=== PATIENT | male | born 1945 | race Caucasian/White ===

== ENCOUNTER 2024-07-27 01:49 | Emergency (ER) | payer MEDICAID, MEDICARE ==
[~2024-07-27] VITALS: Ht 175.3 cm; Wt 82.0 kg
[2024-07-27 01:59] VITALS: O2SAT 99
[2024-07-27] MEDS ORDERED: METHYLPREDNISOLONE SOD SUCC 125MG/2ML (ACT-O-VIAL) IV STA (03:07)
[2024-07-27 03:15] VITALS: PULSE 96; RESP 18
[2024-07-27] MEDS: ALBUTEROL (0.083%) 2.5MG/3ML NEB HHN STA (03:15)
[2024-07-27] MEDS: IPRATROPIUM BROMIDE (0.02%) 0.5MG/2.5ML NEB HHN STA (03:15)
[2024-07-27 03:34] LABS: BASOPHILS % 1.5 % (0.0-2.0); DIFFERENTIAL COMMENT 0; EOSINOPHILS % 11.4 % (0.0-5.0); HEMATOCRIT. 44.3 % (42.0-52.0); LYMPHOCYTES % 25.6 % (20.0-50.0); MEAN CORPUSCULAR HEMOGLOBIN 23.8 pg (28.0-32.0); MEAN CORPUSCULAR HGB CONC 31.6 g/dL (31.0-37.0); MEAN CORPUSCULAR VOLUME 75.4 fL (80.0-94.0); MEAN PLATELET VOLUME 8.2 fl (7.4-10.4); MONOCYTES % 13.4 % (2.0-8.0); NEUTROPHILS % 48.1 % (40.0-76.0); PLATELET 298 x1000/uL (130-400); RED BLOOD CELL COUNT 5.87 mill/uL (4.7-6.1); RED CELL DISTRIBUTION WIDTH 13.2 % (11.6-14.6)
[2024-07-27 03:48] LABS: CARBON DIOXIDE 26 mEq/L (21-32); CHLORIDE 102 mEq/L (98-107); POTASSIUM 4.2 mEq/L (3.5-5.1); SODIUM 135 mEq/L (136-145)
[2024-07-27 03:49] LABS: CALCIUM 9.7 mg/dL (8.7-10.4)
[2024-07-27 03:53] LABS: TROPONIN I HIGH SENSITIVITY 38 ng/L (3.0-53)
[2024-07-27 03:54] LABS: CREATININE 1.1 mg/dL (0.6-1.3); GLUCOSE 150 mg/dL (70-105); UREA NITROGEN BLOOD 14 mg/dL (9-23)
[2024-07-27] MEDS: MAGNESIUM 2 G PREMIX 50 ML IV ONE (04:30)
[2024-07-27] MEDS: METHYLPREDNISOLONE SOD SUCC 125MG/2ML (ACT-O-VIAL) IV NR (04:30)
[2024-07-27 08:04] VITALS: BP 128/78; TEMP 37.11408; O2SAT 100
[2024-07-27] MEDS ORDERED: DEXTROSE 50% WATER 50ML SYRINGE IV PRN (08:45)
[2024-07-27] MEDS ORDERED: IPRATROPIUM/ALBUTEROL 0.5-3(2.5)MG/3ML NEB HHN PRN (08:45)
[2024-07-27] MEDS ORDERED: DOCUSATE SODIUM 100MG CAPSULE PO PRN (08:45)
[2024-07-27] MEDS ORDERED: ACETAMINOPHEN 325MG TABLET PO PRN ×2 (08:45)
[2024-07-27] MEDS ORDERED: MAGNESIUM/ALUMINUM HYDROXIDE/SIMETHICONE 30ML UDC PO PRN (08:45)
[2024-07-27] MEDS: SODIUM CHLORIDE 0.9% 500 ML IV ONE (08:45)
[2024-07-27] MEDS ORDERED: ONDANSETRON HCL 4MG/2ML INJ IV PRN (08:45)
[2024-07-27] MEDS ORDERED: CLONIDINE 0.1MG TABLET PO PRN (08:45)
[2024-07-27] MEDS ORDERED: GUAIFENESIN 200MG/10ML SUGAR FREE UDC PO PRN (08:45)
[2024-07-27] MEDS ORDERED: HYDROCODONE/ACETAMINOPHEN 5/325MG TABLET PO PRN (08:45)
[2024-07-27] MEDS: ASPIRIN 81MG EC TABLET PO SCH (09:00)
[2024-07-27] MEDS: TAMSULOSIN HCL 0.4MG SR CAPSULE PO SCH (09:00)
[2024-07-27] MEDS: AMLODIPINE 5MG TABLET PO SCH (09:00)
[2024-07-27] MEDS: BLOOD SUGAR DIAGNOSTIC STRIP TEST SCH (09:45)
[2024-07-27] MEDS: INSULIN GLARGINE 100 UNITS/ML SUBCUT SCH (10:00)
[2024-07-27] MEDS: ENOXAPARIN 40MG/0.4ML SYR SUBCUT SCH (10:17)
[2024-07-27 11:05] VITALS: PULSE 117; RESP 24
[2024-07-27] MEDS: BUDESONIDE 0.5MG/2ML NEB HHN SCH (11:05)
[2024-07-27] MEDS: IPRATROPIUM/ALBUTEROL 0.5-3(2.5)MG/3ML NEB HHN SCH (11:05)
[2024-07-27] MEDS ORDERED: INSULIN LISPRO 100 UNITS/ML SUBCUT SCH ×2 (12:50→13:20)
[2024-07-27] MEDS ORDERED: METHYLPREDNISOLONE SOD SUCC 40MG/ML (ACT-O-VIAL) IV SCH (14:00)
[2024-07-27] MEDS ORDERED: METFORMIN HCL 500MG TABLET PO SCH (17:00)
== END 2024-07-27 11:52 | disposition left against medical advice (07) ==
LOC: ER 01:49 → CANBEDREQ 11:35 → ER 11:52
DX: J96.91 Respiratory failure, unspecified with hypoxia (principal); J45.901 Unspecified asthma with (acute) exacerbation; F19.90 Other psychoactive substance use, unspecified, uncomplicated; E11.9 Type 2 diabetes mellitus without complications; I11.0 Hypertensive heart disease with heart failure; I50.9 Heart failure, unspecified; N40.0 Benign prostatic hyperplasia without lower urinary tract symptoms; Z79.899 Other long term (current) drug therapy; Z88.0 Allergy status to penicillin; Z87.19 Personal history of other diseases of the digestive system; Z20.822 Contact with and (suspected) exposure to COVID-19
CPT/HCPCS: 80048; 82962; 83036; 83880; 83605; 83690; 85025; 84484; 36415; 71045; 94640; 96361; 96372; 96374; 99291; 87426; J1650; J1815; J3475; J2919; Z7610 ×4; J7626

== ENCOUNTER 2024-12-21 23:48 | Inpatient (IN) | payer MEDICARE, MEDICAID ==
[~2024-12-21] VITALS: Ht 177.8 cm; Wt 79.4 kg
[2024-12-21 23:55] VITALS: RESP 34
[2024-12-22] VITALS (69 sets, daily range): BP systolic 59–150; BP diastolic 39–80; PULSE 57–122; RESP 19–24; TEMP 36.6–36.7; O2SAT 95–100
[2024-12-22] MEDS: METHYLPREDNISOLONE SOD SUCC 125MG/2ML (ACT-O-VIAL) IV ONE (00:09)
[2024-12-22] MEDS: IPRATROPIUM BROMIDE (0.02%) 0.5MG/2.5ML NEB HHN STA (00:09)
[2024-12-22] MEDS: ALBUTEROL (0.083%) 2.5MG/3ML NEB HHN STA (00:10)
[2024-12-22 00:28] LABS: BASOPHILS % 0.4 % (0.0-2.0); DIFFERENTIAL COMMENT 0; EOSINOPHILS % 2.9 % (0.0-5.0); HEMOGLOBIN. 13.8 g/dL (14.0-18.0); LYMPHOCYTES % 21.3 % (20.0-50.0); MEAN CORPUSCULAR HGB CONC 31.3 g/dL (31.0-37.0); MEAN CORPUSCULAR VOLUME 76.7 fL (80.0-94.0); MONOCYTES % 9.1 % (2.0-8.0); NEUTROPHILS % 66.3 % (40.0-76.0); PLATELET 513 x1000/uL (130-400); RED BLOOD CELL COUNT 5.74 mill/uL (4.7-6.1); WHITE BLOOD COUNT 15.8 x1000/uL (4.5-11.0)
[2024-12-22 00:33] LABS: *AMPHETAMINES SCREEN URINE NEGATIVE (NEGATIVE); *BARBITURATES SCREEN URINE NEGATIVE (NEGATIVE); *BENZODIAZEPINES SCREEN URINE NEGATIVE (NEGATIVE); *COCAINE SCREEN URINE NEGATIVE (NEGATIVE); METHADONE URINE SCREEN NEGATIVE (NEGATIVE); OPIATES URINE SCREEN NEGATIVE (NEGATIVE)
[2024-12-22 00:34] LABS: CANNABINOID URINE SCREEN NEGATIVE (NEGATIVE); ECSTASY MDMA SCREEN URINE CONF.TEST INDICATED (NEGATIVE); PHENCYCLIDINE URINE SCREEN NEGATIVE (NEGATIVE)
[2024-12-22 00:37] LABS: PARTIAL THROMBOPLASTIN TIME 25.1 sec (23.4-31.0); PROTHROMBIN TIME 10.3 sec (9.6-11.0)
[2024-12-22 00:44] LABS: CARBON DIOXIDE 24 mEq/L (21-32); CHLORIDE 99 mEq/L (98-107); POTASSIUM 4.7 mEq/L (3.5-5.1); SODIUM 135 mEq/L (136-145)
[2024-12-22 00:45] LABS: CALCIUM 9.1 mg/dL (8.7-10.4)
[2024-12-22 00:49] LABS: CREATININE 1.2 mg/dL (0.6-1.3)
[2024-12-22 00:50] LABS: UREA NITROGEN BLOOD 23 mg/dL (9-23)
[2024-12-22] MEDS: LORAZEPAM 2MG/ML INJ IV ONE (00:58)
[2024-12-22] MEDS: PIPERACILLIN/TAZO 3.375G/50ML 50 ML IV ONE (01:11)
[2024-12-22] MEDS: VANCOMYCIN 1.25GM/250ML 250 ML IV SCH (01:41)
[2024-12-22] MEDS: SODIUM CHLORIDE 0.9% (SEPSIS BOLUS) IV NR (01:41)
[2024-12-22 01:56] LABS: LACTIC ACID 3.8 mmol/L (0.4-2.0)
[2024-12-22 01:57] LABS: GLUCOSE 410 mg/dL (70-105)
[2024-12-22 01:58] LABS: ETHANOL BLOOD < 10 mg/dL (<10); TROPONIN I HIGH SENSITIVITY 58 ng/L (3.0-53)
[2024-12-22 02:08] LABS: INFLUENZA TYPE A Detected (Pres. Neg.); INFLUENZA TYPE B Presumptive Negative (Pres. Neg.)
[2024-12-22] MEDS ORDERED: ACETAMINOPHEN 325MG TABLET PO PRN ×2 (02:30)
[2024-12-22] MEDS ORDERED: DEXTROSE 50% WATER 50ML SYRINGE IV PRN (02:30)
[2024-12-22] MEDS ORDERED: ONDANSETRON HCL 4MG/2ML INJ IV PRN (02:30)
[2024-12-22 02:42] LABS: BG BASE EXCESS -6.4 mmol/L (-2.0-3.0); BG CARBOXYHEMOGLOBIN 0.8 % (0.5-1.5); BG DEOXYHEMOGLOBIN 4.6 % (0.0-5.0); BG FRACTION INSPIRED OXYGEN 60; BG HCO3 ACT 19.4 mmol/L (21.0-28.0); BG OXYGEN SATURATION 95.4 % (94.0-98.0); BG OXYHEMOGLOBIN 94.6 % (94.0-98.0); BG PCO2 39.4 mmHg (35.0-48.0); BG PO2 81.5 mmHg (83.0-108.0); BG SAMPLE SITE RIGHT BRACHIAL; BG TOTAL HEMOGLOBIN 12.7 g/dL (13.5-17.5); BG VENT MODE HIGH FLOW
[2024-12-22] MEDS: OSELTAMIVIR 75MG CAPSULE PO ONE (02:42)
[2024-12-22] MEDS: OSELTAMIVIR 75MG CAPSULE PO NR (02:47)
[2024-12-22] MEDS: ASPIRIN 325MG EC TABLET PO NR (02:47)
[2024-12-22] MEDS ORDERED: METF-415 (02:51)
[2024-12-22] MEDS ORDERED: FLUT1DIS3 PO (02:51)
[2024-12-22] MEDS ORDERED: DORZ10DR9 EACHEYE (02:51)
[2024-12-22] MEDS ORDERED: LISI40TA13 (02:51)
[2024-12-22] MEDS ORDERED: MIRT-89 PO (02:51)
[2024-12-22] MEDS ORDERED: LATA2.5D14 EACHEYE (02:51)
[2024-12-22] MEDS ORDERED: MONT-39 PO (02:51)
[2024-12-22] MEDS ORDERED: BRIM.2 EACHEYE (02:51)
[2024-12-22] MEDS ORDERED: SIMV-43 (02:51)
[2024-12-22 02:55] LABS: POTASSIUM 4.6 mEq/L (3.5-5.1)
[2024-12-22 03:01] LABS: CREATININE 1.2 mg/dL (0.6-1.3)
[2024-12-22] MEDS: IPRATROPIUM BROMIDE (0.02%) 0.5MG/2.5ML NEB HHN SCH (03:37)
[2024-12-22] MEDS ORDERED: FENTANYL 2500MCG/250ML PMX 250 ML IV PRN (05:00)
[2024-12-22] MEDS ORDERED: MIDAZOLAM 100MG/100ML PMX 100 ML IV PRN (05:00)
[2024-12-22] MEDS: MIDAZOLAM 100MG/100ML PMX 100 ML IV PRN (05:09)
[2024-12-22] MEDS: FENTANYL 2500MCG/250ML PMX 250 ML IV PRN (05:10)
[2024-12-22] MEDS ORDERED: PHENYLEPHRINE 50MG/250ML PMX 250 ML IV PRN (05:15)
[2024-12-22] MEDS: SODIUM CHLORIDE 0.9% 100 ML IV ONE (05:39)
[2024-12-22 05:57] LABS: BG CARBOXYHEMOGLOBIN 0.3 % (0.5-1.5); BG DEOXYHEMOGLOBIN 0.1 % (0.0-5.0); BG FRACTION INSPIRED OXYGEN 100; BG HCO3 ACT 18.9 mmol/L (21.0-28.0); BG METHEMOGLOBIN 0.1 % (0.5-1.5); BG OXYGEN SATURATION 99.9 % (94.0-98.0); BG OXYHEMOGLOBIN 99.5 % (94.0-98.0); BG PH 7.252 (7.350-7.450); BG SAMPLE SITE RIGHT BRACHIAL; BG TOTAL HEMOGLOBIN 13.6 g/dL (13.5-17.5); BG TOTAL RESPIRATORY RATE 20 b/min; BG VENT MODE VENT - AC
[2024-12-22] MEDS: SODIUM CHLORIDE 0.9% 1,000 ML IV SCH ×2 (06:00)
[2024-12-22] MEDS: PIPERACILLIN/TAZO 3.375G/50ML 50 ML IV SCH (06:08)
[2024-12-22] MEDS: METHYLPREDNISOLONE SOD SUCC 40MG/ML (ACT-O-VIAL) IV SCH (06:08)
[2024-12-22] MEDS: BLOOD SUGAR DIAGNOSTIC STRIP TEST SCH (07:37)
[2024-12-22] MEDS: PHENYLEPHRINE 50MG/250ML PMX 250 ML IV PRN (08:17)
[2024-12-22] MEDS: ENOXAPARIN 40MG/0.4ML SYR SUBCUT SCH (08:40)
[2024-12-22] MEDS: OSELTAMIVIR 75MG CAPSULE PO SCH (08:40)
[2024-12-22] MEDS: INSULIN LISPRO 100 UNITS/ML SUBCUT SCH (08:41)
[2024-12-22] MEDS: PANTOPRAZOLE SODIUM 40 MG/VIAL IV SCH (08:41)
[2024-12-22] MEDS: DORZOLAM/TIMOLOL 2%/0.5% OPHTH DROPS 10ML EACHEYE SCH (11:33)
[2024-12-22] MEDS: BRIMONIDINE 0.2% OPHTH DROPS 5ML EACHEYE SCH (11:34)
[2024-12-22] MEDS ORDERED: VANCOMYCIN 750MG/250ML IV SCH (15:00)
[2024-12-22] MEDS: VANCOMYCIN 750MG/150ML (BAXTER) IV SCH (15:27)
[2024-12-22 19:18] LABS: CREATINE KINASE MB FRACTION 3.5 ng/mL (0.5-3.6)
[2024-12-22] MEDS: ATORVASTATIN CALCIUM 20MG TABLET PO SCH (20:36)
[2024-12-22] MEDS: ASPIRIN 81MG TABLET PO SCH (20:37)
[2024-12-22] MEDS: ENOXAPARIN 80MG/0.8ML SYR SUBCUT SCH (20:57)
[2024-12-23] VITALS (92 sets, daily range): BP systolic 85–176; BP diastolic 48–141; PULSE 45–120; RESP 4–29; TEMP 36.3–36.8; O2SAT 96–100
[2024-12-23] MEDS: PROPOFOL 10MG/ML 100ML 100 ML IV PRN (00:03)
[2024-12-23 01:27] LABS: CREATINE KINASE MB FRACTION 2.7 ng/mL (0.5-3.6)
[2024-12-23 06:13] LABS: CHLORIDE 107 mEq/L (98-107); SODIUM 138 mEq/L (136-145)
[2024-12-23 06:14] LABS: BASOPHILS % 0.1 % (0.0-2.0); CALCIUM 8.2 mg/dL (8.7-10.4); CARBON DIOXIDE 18 mEq/L (21-32); DIFFERENTIAL COMMENT 0; HEMATOCRIT. 35.8 % (42.0-52.0); HEMOGLOBIN. 11.5 g/dL (14.0-18.0); LYMPHOCYTES % 8.1 % (20.0-50.0); MEAN CORPUSCULAR HEMOGLOBIN 23.5 pg (28.0-32.0); MEAN CORPUSCULAR VOLUME 73.4 fL (80.0-94.0); MEAN PLATELET VOLUME 8.5 fl (7.4-10.4); MONOCYTES % 6.4 % (2.0-8.0); NEUTROPHILS % 85.4 % (40.0-76.0); PLATELET 338 x1000/uL (130-400); RED BLOOD CELL COUNT 4.88 mill/uL (4.7-6.1); RED CELL DISTRIBUTION WIDTH 15.9 % (11.6-14.6); WHITE BLOOD COUNT 19.9 x1000/uL (4.5-11.0)
[2024-12-23 06:17] LABS: CREATINE KINASE MB FRACTION 2.5 ng/mL (0.5-3.6)
[2024-12-23 06:19] LABS: ALANINE AMINOTRANSFERASE 237 IU/L (10-49); CREATININE 0.9 mg/dL (0.6-1.3); GLUCOSE 199 mg/dL (70-105); TRIGLYCERIDE 109 mg/dL (0-150); UREA NITROGEN BLOOD 28 mg/dL (9-23)
[2024-12-23 06:21] LABS: ALBUMIN 3.1 g/dL (3.2-4.8); ASPARTATE AMINOTRANSFERASE 203 IU/L (<34); BILIRUBIN TOTAL 0.6 mg/dL (0.1-1.0); CREATINE KINASE 60 IU/L (46-171); PROTEIN TOTAL 5.4 g/dL (6.0-8.3)
[2024-12-23 06:38] LABS: TROPONIN I HIGH SENSITIVITY 334 ng/L (3.0-53)
[2024-12-23 08:51] LABS: BG BASE EXCESS -5.2 mmol/L (-2.0-3.0); BG CARBOXYHEMOGLOBIN 0.1 % (0.5-1.5); BG FRACTION INSPIRED OXYGEN 50; BG HCO3 ACT 18.5 mmol/L (21.0-28.0); BG METHEMOGLOBIN 0.3 % (0.5-1.5); BG OXYHEMOGLOBIN 98.6 % (94.0-98.0); BG PCO2 30.2 mmHg (35.0-48.0); BG PH 7.405 (7.350-7.450); BG PO2 140.2 mmHg (83.0-108.0); BG SAMPLE SITE LEFT RADIAL; BG VENT MODE VENT - AC
[2024-12-23 09:41] LABS: TRIGLYCERIDE 104 mg/dL (0-150)
[2024-12-23 09:42] LABS: LDL CHOLESTEROL 58 mg/dL (5-100)
[2024-12-23 09:43] LABS: CHOLESTEROL 145 mg/dL (<200); HDL CHOLESTEROL 55 mg/dL (>55); THYROID STIMULATING HORMONE < 0.10 uIU/mL (0.55-4.78)
[2024-12-23 09:46] LABS: T4 FREE 1.91 ng/dL (0.89-1.76)
[2024-12-23] MEDS ORDERED: AZITHROMYCIN 500MG/250ML 250 ML IV SCH (10:00)
[2024-12-23] MEDS: LATANOPROST 0.005% OPHTH DROPS 2.5ML EACHEYE SCH (11:30)
[2024-12-23 15:18] LABS: BG BASE EXCESS -4.9 mmol/L (-2.0-3.0); BG CARBOXYHEMOGLOBIN 0.1 % (0.5-1.5); BG DEOXYHEMOGLOBIN 1.5 % (0.0-5.0); BG FRACTION INSPIRED OXYGEN 40; BG HCO3 ACT 19.2 mmol/L (21.0-28.0); BG METHEMOGLOBIN 0.3 % (0.5-1.5); BG OXYGEN SATURATION 98.5 % (94.0-98.0); BG OXYHEMOGLOBIN 98.1 % (94.0-98.0); BG PCO2 32.4 mmHg (35.0-48.0); BG PO2 116.2 mmHg (83.0-108.0); BG SAMPLE SITE LEFT RADIAL; BG TOTAL HEMOGLOBIN 11.4 g/dL (13.5-17.5); BG TOTAL RESPIRATORY RATE 18 b/min; BG VENT MODE VENT - SIMV
[2024-12-23 18:50] LABS: TROPONIN I HIGH SENSITIVITY 207 ng/L (3.0-53)
[2024-12-23] MEDS: CLONIDINE 0.1MG TABLET PO PRN (19:11)
[2024-12-23] MEDS: LORAZEPAM 2MG/ML INJ IV PRN (20:38)
[2024-12-23] MEDS ORDERED: DEXMEDETOMIDINE 400 MCG/100 ML 100 ML IV PRN (21:00)
[2024-12-23] MEDS: DEXMEDETOMIDINE 400 MCG/100 ML 100 ML IV PRN (22:48)
[2024-12-24] VITALS (48 sets, daily range): BP systolic 102–172; BP diastolic 52–81; PULSE 52–63; RESP 13–22; TEMP 35.8–36.4; O2SAT 10–100
[2024-12-24 00:14] LABS: TROPONIN I HIGH SENSITIVITY 273 ng/L (3.0-53)
[2024-12-24 05:52] LABS: HEMATOCRIT. 35.9 % (42.0-52.0); HEMOGLOBIN. 11.6 g/dL (14.0-18.0); MEAN CORPUSCULAR HEMOGLOBIN 23.7 pg (28.0-32.0); MEAN CORPUSCULAR HGB CONC 32.3 g/dL (31.0-37.0); MEAN CORPUSCULAR VOLUME 73.3 fL (80.0-94.0); MEAN PLATELET VOLUME 8.3 fl (7.4-10.4); PLATELET 281 x1000/uL (130-400); RED CELL DISTRIBUTION WIDTH 15.7 % (11.6-14.6); WHITE BLOOD COUNT 12.8 x1000/uL (4.5-11.0)
[2024-12-24 06:08] LABS: CHLORIDE 108 mEq/L (98-107); POTASSIUM 4.2 mEq/L (3.5-5.1); SODIUM 140 mEq/L (136-145)
[2024-12-24 06:09] LABS: CARBON DIOXIDE 23 mEq/L (21-32)
[2024-12-24 06:10] LABS: CALCIUM 8.1 mg/dL (8.7-10.4)
[2024-12-24 06:14] LABS: CREATININE 0.9 mg/dL (0.6-1.3); GLUCOSE 330 mg/dL (70-105)
[2024-12-24 06:15] LABS: UREA NITROGEN BLOOD 29 mg/dL (9-23)
[2024-12-24 06:22] LABS: TROPONIN I HIGH SENSITIVITY 173 ng/L (3.0-53)
[2024-12-24 06:48] LABS: DIFFERENTIAL COMMENT 1
[2024-12-24 08:48] LABS: BG BASE EXCESS -5.2 mmol/L (-2.0-3.0); BG CARBOXYHEMOGLOBIN 0.2 % (0.5-1.5); BG DEOXYHEMOGLOBIN 1.3 % (0.0-5.0); BG FRACTION INSPIRED OXYGEN 40; BG METHEMOGLOBIN 0.2 % (0.5-1.5); BG OXYGEN SATURATION 98.7 % (94.0-98.0); BG OXYHEMOGLOBIN 98.3 % (94.0-98.0); BG PCO2 32.6 mmHg (35.0-48.0); BG PH 7.383 (7.350-7.450); BG PO2 145.2 mmHg (83.0-108.0); BG SAMPLE SITE RIGHT RADIAL; BG TOTAL HEMOGLOBIN 11.9 g/dL (13.5-17.5); BG VENT MODE VENT - SIMV
[2024-12-24] MEDS: INSULIN GLARGINE 100 UNITS/ML SUBCUT SCH (10:44)
[2024-12-24] MEDS: HYDRALAZINE 20MG/ML VIAL IV NR (10:44)
[2024-12-25] VITALS (55 sets, daily range): BP systolic 111–176; BP diastolic 47–125; PULSE 50–73; RESP 14–20; TEMP 36.3–37.1; O2SAT 97–100
[2024-12-25 05:03] LABS: HEMATOCRIT. 39.1 % (42.0-52.0); HEMOGLOBIN. 12.3 g/dL (14.0-18.0); MEAN CORPUSCULAR HGB CONC 31.4 g/dL (31.0-37.0); MEAN CORPUSCULAR VOLUME 73.4 fL (80.0-94.0); MEAN PLATELET VOLUME 8.4 fl (7.4-10.4); PLATELET 272 x1000/uL (130-400); RED BLOOD CELL COUNT 5.33 mill/uL (4.7-6.1); RED CELL DISTRIBUTION WIDTH 15.8 % (11.6-14.6); WHITE BLOOD COUNT 11.8 x1000/uL (4.5-11.0)
[2024-12-25 05:20] LABS: CARBON DIOXIDE 27 mEq/L (21-32); CHLORIDE 109 mEq/L (98-107); POTASSIUM 4.2 mEq/L (3.5-5.1); SODIUM 143 mEq/L (136-145)
[2024-12-25 05:21] LABS: CALCIUM 8.5 mg/dL (8.7-10.4)
[2024-12-25 05:26] LABS: CREATININE 0.7 mg/dL (0.6-1.3); GLUCOSE 291 mg/dL (70-105); UREA NITROGEN BLOOD 28 mg/dL (9-23)
[2024-12-25 06:15] LABS: DIFFERENTIAL COMMENT 1
[2024-12-25] MEDS: HYDRALAZINE 20MG/ML VIAL IV NR (06:35)
[2024-12-25] MEDS: LISINOPRIL 40MG TABLET PO SCH (09:15)
[2024-12-25 09:40] LABS: MICROCYTOSIS 2+; PLATELET ESTIMATE NORMAL
[2024-12-25 10:15] LABS: BG BASE EXCESS 1.1 mmol/L (-2.0-3.0); BG CARBOXYHEMOGLOBIN 0.4 % (0.5-1.5); BG DEOXYHEMOGLOBIN 3.4 % (0.0-5.0); BG FRACTION INSPIRED OXYGEN 30; BG HCO3 ACT 24.3 mmol/L (21.0-28.0); BG METHEMOGLOBIN 0.3 % (0.5-1.5); BG OXYGEN SATURATION 96.6 % (94.0-98.0); BG OXYHEMOGLOBIN 95.9 % (94.0-98.0); BG PCO2 34.1 mmHg (35.0-48.0); BG PH 7.471 (7.350-7.450); BG SAMPLE SITE RIGHT RADIAL; BG TOTAL HEMOGLOBIN 12.7 g/dL (13.5-17.5); BG VENT MODE VENT - CPAP
[2024-12-25 13:25] LABS: MICROCYTOSIS 2+; PLATELET ESTIMATE NORMAL
[2024-12-25] MEDS: HYDRALAZINE 20MG/ML VIAL IV PRN (17:54)
[2024-12-25] MEDS: METHYLPREDNISOLONE SOD SUCC 40MG/ML (ACT-O-VIAL) IV SCH (21:27)
[2024-12-26] VITALS (49 sets, daily range): BP systolic 123–181; BP diastolic 54–136; PULSE 56–114; RESP 12–22; TEMP 36.7–37.3; O2SAT 95–100
[2024-12-26] MEDS: HYDRALAZINE 20MG/ML VIAL IV PRN (03:57)
[2024-12-26 05:18] LABS: HEMATOCRIT 37.5 % (42.0-52.0); HEMOGLOBIN 11.8 g/dL (14.0-18.0); MEAN CORPUSCULAR HEMOGLOBIN 23.2 pg (28.0-32.0); MEAN CORPUSCULAR HGB CONC 31.5 g/dL (31.0-37.0); MEAN CORPUSCULAR VOLUME 73.6 fL (80.0-94.0); PLATELET 91 x1000/uL (130-400); RED BLOOD CELL COUNT 5.09 mill/uL (4.7-6.1); RED CELL DISTRIBUTION WIDTH 16.3 % (11.6-14.6); WHITE BLOOD COUNT 8.9 x1000/uL (4.5-11.0)
[2024-12-26] MEDS: BLOOD SUGAR DIAGNOSTIC STRIP TEST SCH (05:19)
[2024-12-26] MEDS: INSULIN LISPRO 100 UNITS/ML SUBCUT SCH (05:20)
[2024-12-26 05:33] LABS: CHLORIDE 106 mEq/L (98-107); POTASSIUM 4.4 mEq/L (3.5-5.1); SODIUM 139 mEq/L (136-145)
[2024-12-26 05:34] LABS: CARBON DIOXIDE 27 mEq/L (21-32)
[2024-12-26 05:35] LABS: CALCIUM 8.4 mg/dL (8.7-10.4)
[2024-12-26 05:39] LABS: CREATININE 0.7 mg/dL (0.6-1.3); GLUCOSE 305 mg/dL (70-105)
[2024-12-26 05:40] LABS: UREA NITROGEN BLOOD 25 mg/dL (9-23)
[2024-12-26] MEDS ORDERED: INSULIN LISPRO 100 UNITS/ML SUBCUT SCH (07:37)
[2024-12-26] MEDS ORDERED: NICARDIPINE 40MG/200ML PREMIX 200 ML IV PRN (08:45)
[2024-12-26] MEDS: HYDRALAZINE 20MG/ML VIAL IV NR (08:46)
[2024-12-26] MEDS: ENOXAPARIN 40MG/0.4ML SYR SUBCUT SCH (08:47)
[2024-12-26] MEDS ORDERED: BLOOD SUGAR DIAGNOSTIC STRIP TEST SCH (09:00)
[2024-12-26 10:00] LABS: BG BASE EXCESS 3.8 mmol/L (-2.0-3.0); BG CARBOXYHEMOGLOBIN 0.9 % (0.5-1.5); BG DEOXYHEMOGLOBIN 3.1 % (0.0-5.0); BG FRACTION INSPIRED OXYGEN 30; BG HCO3 ACT 27.3 mmol/L (21.0-28.0); BG METHEMOGLOBIN 0.3 % (0.5-1.5); BG OXYGEN SATURATION 96.9 % (94.0-98.0); BG OXYHEMOGLOBIN 95.7 % (94.0-98.0); BG PCO2 37.1 mmHg (35.0-48.0); BG PH 7.484 (7.350-7.450); BG PO2 84.1 mmHg (83.0-108.0); BG SAMPLE SITE RIGHT BRACHIAL; BG TOTAL HEMOGLOBIN 13.2 g/dL (13.5-17.5); BG VENT MODE VENT - CPAP
[2024-12-26] MEDS: INSULIN GLARGINE 100 UNITS/ML SUBCUT SCH (11:16)
[2024-12-26] MEDS: BISACODYL 5MG TABLET PO NR ×2 (14:42→18:33)
[2024-12-26] MEDS ORDERED: MONT-39 MT (17:25)
[2024-12-26] MEDS ORDERED: PRAV20TA57 MT (17:25)
[2024-12-26] MEDS ORDERED: DICY-18 MT (17:25)
[2024-12-26] MEDS ORDERED: MIRT-89 MT (17:25)
[2024-12-26] MEDS ORDERED: LORA10TA7 MT (17:25)
[2024-12-26] MEDS ORDERED: METF-415 MT (17:25)
[2024-12-26] MEDS ORDERED: TIOT18CA3 IH (17:25)
[2024-12-26] MEDS ORDERED: SIMV10TA97 MT (17:25)
[2024-12-26] MEDS ORDERED: GLIP10TA17 PO (17:25)
[2024-12-26] MEDS ORDERED: LISI40TA13 MT (17:25)
[2024-12-26] MEDS ORDERED: FAMO20TA8 MT (17:25)
[2024-12-26] MEDS: METHYLPREDNISOLONE SOD SUCC 40MG/ML (ACT-O-VIAL) IV SCH (20:13)
[2024-12-26] MEDS: AMLODIPINE 5MG TABLET PO SCH (20:14)
[2024-12-27] VITALS (9 sets, daily range): BP systolic 100–180; BP diastolic 55–88; PULSE 91–109; RESP 16–20; TEMP 35.9–37.4; O2SAT 95–98
[2024-12-27] MEDS ORDERED: HYDRALAZINE 20MG/ML VIAL IV ONE (01:00)
[2024-12-27] MEDS: HYDRALAZINE 10 MG in SODIUM CHLORIDE 0.9% 49.5 ML IV NR (01:30)
[2024-12-27] MEDS ORDERED: HYDRALAZINE 10 MG in SODIUM CHLORIDE 0.9% 49.5 ML IV PRN (07:00)
[2024-12-27 10:17] LABS: HEMATOCRIT 41.1 % (42.0-52.0); HEMOGLOBIN 13.1 g/dL (14.0-18.0); MEAN CORPUSCULAR HEMOGLOBIN 23.1 pg (28.0-32.0); PLATELET 390 x1000/uL (130-400); WHITE BLOOD COUNT 16.5 x1000/uL (4.5-11.0)
[2024-12-27 10:25] LABS: CARBON DIOXIDE 27 mEq/L (21-32); CHLORIDE 99 mEq/L (98-107); POTASSIUM 3.4 mEq/L (3.5-5.1); SODIUM 140 mEq/L (136-145)
[2024-12-27 10:26] LABS: CALCIUM 9.2 mg/dL (8.7-10.4)
[2024-12-27 10:31] LABS: UREA NITROGEN BLOOD 22 mg/dL (9-23)
[2024-12-27 10:48] LABS: GLUCOSE 119 mg/dL (70-105)
[2024-12-28] VITALS: BP 171/89; PULSE 89; RESP 20; TEMP 36.3; O2SAT 97
[2024-12-28 04:00] VITALS: BP 184/85; PULSE 85; RESP 20; TEMP 36.3; O2SAT 97
[2024-12-28 07:38] LABS: CHLORIDE 99 mEq/L (98-107); POTASSIUM 3.8 mEq/L (3.5-5.1); SODIUM 139 mEq/L (136-145)
[2024-12-28 07:39] LABS: CARBON DIOXIDE 28 mEq/L (21-32)
[2024-12-28 07:40] LABS: CALCIUM 8.7 mg/dL (8.7-10.4)
[2024-12-28 07:44] LABS: GLUCOSE 185 mg/dL (70-105)
[2024-12-28 07:45] LABS: UREA NITROGEN BLOOD 18 mg/dL (9-23)
[2024-12-28 08:19] LABS: BASOPHILS % 0.1 % (0.0-2.0); DIFFERENTIAL COMMENT 0; HEMATOCRIT. 38.1 % (42.0-52.0); HEMOGLOBIN. 12.2 g/dL (14.0-18.0); LYMPHOCYTES % 10.3 % (20.0-50.0); MEAN CORPUSCULAR HEMOGLOBIN 23.2 pg (28.0-32.0); MEAN CORPUSCULAR HGB CONC 32.2 g/dL (31.0-37.0); MEAN CORPUSCULAR VOLUME 72.1 fL (80.0-94.0); MEAN PLATELET VOLUME 8.4 fl (7.4-10.4); MONOCYTES % 4.3 % (2.0-8.0); NEUTROPHILS % 85.3 % (40.0-76.0); PLATELET 358 x1000/uL (130-400); RED BLOOD CELL COUNT 5.28 mill/uL (4.7-6.1); RED CELL DISTRIBUTION WIDTH 16.1 % (11.6-14.6); WHITE BLOOD COUNT 9.3 x1000/uL (4.5-11.0)
[2024-12-28] MEDS ORDERED: HYDRALAZINE HCL 25MG TABLET PO SCH (14:00)
[2024-12-28] MEDS ORDERED: HYDRALAZINE HCL 50MG TABLET PO SCH (14:00)
[2024-12-28 14:39] VITALS: BP 152/75; PULSE 85; TEMP 97.8; O2SAT 100
[2024-12-29] MEDS ORDERED: METHYLPREDNISOLONE SOD SUCC 40MG/ML (ACT-O-VIAL) IV SCH (09:00)
== END 2024-12-28 15:55 | disposition home health service (06) | DRG 870 ==
LOC: ER 12-22 00:13 → MICUNO 12-22 01:26 → EDBEDREQSVC 12-22 05:06 → 6EST 12-26 20:44
PROVIDERS: ADMIT Hospitalist; ATTEND Hospitalist
PROC: 5A09357 Assistance with Respiratory Ventilation, Less than 24 Consecutive Hours, Continuous Positive Airway Pressure (ICD-10-PCS; 2024-12-21)
PROC: 5A1955Z Respiratory Ventilation, Greater than 96 Consecutive Hours (ICD-10-PCS; principal; 2024-12-22)
PROC: 0BH17EZ Insertion of Endotracheal Airway into Trachea, Via Natural or Artificial Opening (ICD-10-PCS; 2024-12-22)
PROC: 5A0935A Assistance with Respiratory Ventilation, Less than 24 Consecutive Hours, High Flow/Velocity Cannula (ICD-10-PCS; 2024-12-22)
DX: A41.89 Other specified sepsis (principal); G92.8 Other toxic encephalopathy; J10.00 Influenza due to other identified influenza virus with unspecified type of pneumonia; J96.01 Acute respiratory failure with hypoxia; I21.A1 Myocardial infarction type 2; R65.21 Severe sepsis with septic shock; E87.20 Acidosis, unspecified; J44.1 Chronic obstructive pulmonary disease with (acute) exacerbation; J44.0 Chronic obstructive pulmonary disease with (acute) lower respiratory infection; J45.901 Unspecified asthma with (acute) exacerbation; E11.36 Type 2 diabetes mellitus with diabetic cataract; E11.65 Type 2 diabetes mellitus with hyperglycemia; E11.42 Type 2 diabetes mellitus with diabetic polyneuropathy; D50.9 Iron deficiency anemia, unspecified; D75.839 Thrombocytosis, unspecified; Z20.822 Contact with and (suspected) exposure to COVID-19; D63.8 Anemia in other chronic diseases classified elsewhere; D69.6 Thrombocytopenia, unspecified; E05.90 Thyrotoxicosis, unspecified without thyrotoxic crisis or storm; F10.20 Alcohol dependence, uncomplicated; G62.1 Alcoholic polyneuropathy; I50.9 Heart failure, unspecified; K70.9 Alcoholic liver disease, unspecified; I44.7 Left bundle-branch block, unspecified; R26.89 Other abnormalities of gait and mobility; I49.9 Cardiac arrhythmia, unspecified; N40.0 Benign prostatic hyperplasia without lower urinary tract symptoms; R13.10 Dysphagia, unspecified; Z78.9 Other specified health status; Z79.4 Long term (current) use of insulin; Z79.51 Long term (current) use of inhaled steroids; Z79.82 Long term (current) use of aspirin; Z79.84 Long term (current) use of oral hypoglycemic drugs; Z79.899 Other long term (current) drug therapy
CPT/HCPCS: 36415; 36600; 71045; 74018; 80048; 80053; 80061; 80202; 80305; 80320; 82010; 82375; 82550; 82553; 82805; 82962; 83036; 83520; 83605; 83735; 83880; 84145; 84439; 84443; 84478; 84484; 85025; 85027; 85379; 86376; 87426; 87804; 93005; 93306; 94002; 94003; 94070; 94640; 94660; 94664; 97162; 97166; 99291; A4606; J0360; J0456; J1650; J1815; J2060; J2250; J2470; J2543; J2704; J2919; J2920; J3010; J3370; J7030; Q9957; G0480